=== PATIENT | male | born 1980 | race African-American/Black ===

== ENCOUNTER → 2018-06-22 | Outpatient (CLI) | payer OTHER ==
--- NOTE | 2018-06-22 15:37 | RAD ---
Examination: 2 views of the left hip and left knee HISTORY: History of pain in the left hip and knee COMPARISON: None available FINDINGS: Femoral head is within the acetabulum.The alignment of the knee joint grossly appears unremarkable. There is no acute fracture or dislocation identified. IMPRESSION: No acute osseous findings. Electronically signed by: Yovani Adler MD (06/22/2018 3:34 PM) [id number]
== END | disposition home or self-care (01) ==
LOC: RAD 15:06
PROVIDERS: ATTEND Surgery
DX: M17.12 Unilateral primary osteoarthritis, left knee (principal); M16.12 Unilateral primary osteoarthritis, left hip
CPT/HCPCS: 73502; 73560

== ENCOUNTER 2018-07-25 02:45 | Emergency (ER) | payer OTHER ==
[~2018-07-25] VITALS: Ht 177.8 cm; Wt 87.5 kg
[2018-07-25] MEDS ORDERED: MORPHINE SULFATE 4 MG/ML DISP.SYRIN. IV ONE ×2 (03:00→03:45)
--- NOTE | 2018-07-25 03:05 | PHYS DOC ---
Adult General Chief Complaint Chief Complaint Left shoulder pain HPI HPI 37 years old gentleman with history of epilepsy who missed his Keppra dose for the past 48 hours presented to the emergency department with the left shoulder pain after seizure happened at home.. Review of Systems Review of Systems Constitutional: Denies fever or chills [] Eyes: Denies change in visual acuity, redness, or eye pain [] HENT: Denies nasal congestion or sore throat [] Respiratory: Denies cough or shortness of breath [] Cardiovascular: No additional information not addressed in HPI [] GI: Denies abdominal pain, nausea, vomiting, bloody stools or diarrhea [] : Denies dysuria or hematuria [] Musculoskeletal: Denies back pain ] Integument: Denies rash or skin lesions [] Neurologic: Denies headache, focal weakness or sensory changes [] Endocrine: Denies polyuria or polydipsia [] All other systems were reviewed and found to be within normal limits, except as documented in this note. Current Medications Current Medications Current Medications Medications (Trade) Dose Ordered Sig/Meghan Start Time Stop Time Status Last Admin Dose Admin Etomidate (Amidate) 10 mg 1X ONCE 07/25/18 04:00 07/25/18 04:01 UNV Levetiracetam (Keppra) 500 mg STK-MED ONCE 07/25/18 03:11 07/25/18 03:12 DC Levetiracetam 1000 mg/Sodium Chloride 100 ml @ 400 mls/hr 1X ONCE 07/25/18 03:15 07/25/18 03:49 DC 07/25/18 03:16 400 MLS/HR Lidocaine HCl 20 ml 1X ONCE 07/25/18 03:30 07/25/18 03:50 DC 07/25/18 03:25 20 ML Morphine Sulfate (Morphine 4mg Syringe) 4 mg 1X ONCE 07/25/18 03:45 07/25/18 03:51 DC 07/25/18 03:55 4 MG Sodium Chloride 1,000 ml @ 1,000 mls/hr 1X ONCE 07/25/18 04:00 07/25/18 04:59 UNV Allergies Allergies Allergies Coded Allergies Type Severity Reaction Last Updated Verified No Known Drug Allergies 07/25/18 No Physical Exam Physical Exam Constitutional: Well developed, well nourished, no acute distress, non-toxic appearance. [] HENT: Normocephalic, atraumatic, bilateral external ears normal, oropharynx moist, no oral exudates, nose normal. [] Eyes: PERRLA, EOMI, conjunctiva normal, no discharge. [] Neck: Normal range of motion, no tenderness, supple, no stridor. [] Cardiovascular:Heart rate regular rhythm, no murmur [] Lungs & Thorax: Bilateral breath sounds clear to auscultation [] Abdomen: Bowel sounds normal, soft, no tenderness, no masses, no pulsatile masses. [] Skin: Warm, dry, no erythema, no rash. [] Back: No tenderness, no CVA tenderness. [] Extremities: Tender left shoulder limited range of motion Neurologic: Alert and oriented X 3, normal motor function, normal sensory function, no focal deficits noted. [] Psychologic: Affect normal, judgement normal, mood normal. [] Current Patient Data Vital Signs Vital Signs Date Time Temp Pulse Resp B/P (MAP) Pulse Ox O2 Delivery O2 Flow Rate FiO2 07/25/18 03:55 16 99 2.0 07/25/18 03:41 79 07/25/18 03:02 Room Air 07/25/18 02:50 97.4 Lab Results Laboratory Tests Test 07/25/18 02:55 White Blood Count 4.8 x10^3/uL (4.0-11.0) Red Blood Count 4.99 x10^6/uL (4.30-5.70) Hemoglobin 15.2 g/dL (13.0-17.5) Hematocrit 44.6 % (39.0-53.0) Mean Corpuscular Volume 89 fL (79-100) Mean Corpuscular Hemoglobin 30 pg (25-35) Mean Corpuscular Hemoglobin Concent 34 g/dL (31-37) Red Cell Distribution Width 12.7 % (11.5-14.5) Platelet Count 303 x10^3/uL (140-400) Neutrophils (%) (Auto) 52 % (31-73) Lymphocytes (%) (Auto) 40 % (24-48) Monocytes (%) (Auto) 4 % (0-9) Eosinophils (%) (Auto) 3 % (0-3) Basophils (%) (Auto) 1 % (0-3) Neutrophils # (Auto) 2.5 x10^3uL (1.8-7.7) Lymphocytes # (Auto) 1.9 x10^3/uL (1.0-4.8) Monocytes # (Auto) 0.2 x10^3/uL (0.0-1.1) Eosinophils # (Auto) 0.2 x10^3/uL (0.0-0.7) Basophils # (Auto) 0.0 x10^3/uL (0.0-0.2) Sodium Level 140 mmol/L (136-145) Potassium Level 3.3 mmol/L (3.5-5.1) L Chloride Level 103 mmol/L (98-107) Carbon Dioxide Level 30 mmol/L (21-32) Anion Gap 7 (6-14) Blood Urea Nitrogen 12 mg/dL (8-26) Creatinine 1.4 mg/dL (0.7-1.3) H Estimated GFR (Cockcroft-Gault) 68.6 Glucose Level 120 mg/dL (70-99) H Calcium Level 8.9 mg/dL (8.5-10.1) EKG EKG [] Radiology/Procedures Radiology/Procedures [] Course & Med Decision Making Course & Med Decision Making Pertinent Labs and Imaging studies reviewed. (See chart for details) Conscious sedation with etomidate 10 mg IV used consents signed prior patient understood the risk and benefits Shoulder reduced with traction and /external rotation [] Final Impression Final Impression [] Problems: (1) Epilepsy Qualifiers: Qualified Codes: G40.309 - Generalized idiopathic epilepsy and epileptic syndromes, not intractable, without status epilepticus (2) Dislocation, shoulder, anterior Qualifiers: Qualified Codes: S43.015A - Anterior dislocation of left humerus, initial encounter Dragon Disclaimer Dragon Disclaimer This electronic medical record was generated, in whole or in part, using a voice recognition dictation system. YAAKOV LEDEZMA MD Jul 25, 2018 03:05
[2018-07-25] MEDS ORDERED: HYDR-3165 PO (03:06)
[2018-07-25] MEDS ORDERED: levETIRAcetam 500 MG/5 ML VIAL IV ONE (03:11)
[2018-07-25] MEDS ORDERED: IV NORMAL SALINE 100ML 100 ML ONE (03:11)
[2018-07-25] MEDS ORDERED: LIDOCAINE 1% Multi-Dose 20 ML VIAL. ONE (03:15)
[2018-07-25] MEDS ORDERED: LIDOCAINE 2% 20 ML VIAL. ONE (03:18)
[2018-07-25] MEDS ORDERED: MORPHINE SULFATE 4 MG/ML DISP.SYRIN. IM ONE (03:30)
[2018-07-25] MEDS ORDERED: LIDOCAINE 2% 20 ML VIAL. IJ ONE (03:30)
--- NOTE | 2018-07-25 03:30 | RAD ---
Left shoulder radiograph July 25, 2018 INDICATION: Trauma from fall with left shoulder pain COMPARISON: None available. TECHNIQUE: 3 views left shoulder are provided. FINDINGS: Anterior inferior dislocation of the humerus in relation to the glenoid. Bone mineralization is within normal limits. Joint spaces are otherwise maintained. Regional soft tissues are within normal limits. There is no soft tissue gas or osseous erosion. IMPRESSION: Anterior-inferior glenohumeral dislocation. No acute fracture. Postreduction films are recommended. Electronically signed by: Ginny Ponce MD (07/25/2018 3:27 AM) [id number]
--- NOTE | 2018-07-25 03:46 | RAD ---
Left shoulder radiograph 07/25/2018 3:29 AM INDICATION: Post manipulation COMPARISON: None available. TECHNIQUE: Single view of the left shoulder is provided. FINDINGS/ IMPRESSION: There is persistent anterior-inferior dislocation of the left glenohumeral joint. No acute fracture is identified. Acromioclavicular joint is well aligned. Electronically signed by: Ginny Ponce MD (07/25/2018 3:43 AM) [facility]
[2018-07-25] MEDS ORDERED: ETOMIDATE 40 MG/20 ML VIAL. IV ONE ×2 (03:51→04:00)
[2018-07-25 04:00] LABS: BASO % 1 % (0-3); CALCIUM 8.9 mg/dL (8.5-10.1); CREATININE 1.4 mg/dL (0.7-1.3); EOS # 0.2 x10^3/uL (0.0-0.7); EOS % 3 % (0-3); GFR 68.6; HEMATOCRIT 44.6 % (39.0-53.0); HEMOGLOBIN 15.2 g/dL (13.0-17.5); LYMPH # 1.9 x10^3/uL (1.0-4.8); LYMPH % 40 % (24-48); MEAN CORPUSCULAR HEMOGLOBIN 30 pg (25-35); MEAN CORPUSCULAR HGB CONC 34 g/dL (31-37); MEAN CORPUSCULAR VOLUME 89 fL (79-100); MONO # 0.2 x10^3/uL (0.0-1.1); MONO % 4 % (0-9); NEUT # 2.5 x10^3uL (1.8-7.7); NEUT % 52 % (31-73); PLATELET COUNT 303 x10^3/uL (140-400); POTASSIUM 3.3 mmol/L (3.5-5.1); RED BLOOD COUNT 4.99 x10^6/uL (4.30-5.70); RED CELL DISTRIBUTION WIDTH 12.7 % (11.5-14.5); WHITE BLOOD COUNT 4.8 x10^3/uL (4.0-11.0)
[2018-07-25] MEDS ORDERED: IV NORMAL SALINE 1,000ML 1,000 ML IV ONE (04:00)
--- NOTE | 2018-07-25 04:26 | RAD ---
Left shoulder radiograph 07/25/2018 3:23 AM INDICATION: Postreduction COMPARISON: Left shoulder radiograph 07/25/2018. TECHNIQUE: Single view of the left shoulder is provided. FINDINGS: Interval reduction of previous glenohumeral dislocation. There is mild contour abnormality involving the posterior lateral humeral head which may reflect a Hill-Sachs deformity. IMPRESSION: Possible Hill-Sachs deformity involving the humerus status post reduction of glenohumeral joint dislocation. Electronically signed by: Ginny Ponce MD (07/25/2018 4:23 AM) [facility]
[2018-07-25 04:40] VITALS: BP 159/96
--- NOTE | 2018-07-25 18:29 | PHYS DOC ---
General Time Seen by : 02:49 Source: patient Exam Limitations: no limitations Results Test Performed Reduction of the shoulder on the left side Reason for Test/Test Result Follow-up shoulder reduction Associated Symptoms Associated Symptoms: denies symptoms (6:20 PM on July 25, 2018 I called the patient to follow-up on his shoulder he stated that he is feeling much better he doesn't have any pain just keep it in the sling I informed the patient about the results of the post reduction x-rays and the possibility of small fracture I advised him to follow-up with orthopedics also advised him to keep the sling on. He stated currently his pain is down to 0 and he is able to move the shoulder in all directions.) Allergies Allergies: Coded Allergies: No Known Drug Allergies (Unverified , 07/25/18) YAAKOV LEDEZMA MD Jul 25, 2018 18:29
== END 2018-07-25 05:00 | disposition home or self-care (01) ==
LOC: ER 02:45
DX: S43.015A Anterior dislocation of left humerus, initial encounter (principal); G40.309 Generalized idiopathic epilepsy and epileptic syndromes, not intractable, without status epilepticus; W18.30XA Fall on same level, unspecified, initial encounter; Y93.89 Activity, other specified; Y92.098 Other place in other non-institutional residence as the place of occurrence of the external cause; Y99.8 Other external cause status
CPT/HCPCS: 23650; 36415; 73020; 73030; 80048; 85025; 96365; 99285; J1953; J2270; J2001; J7030